=== PATIENT | male | born 1930 | race Caucasian/White ===

== ENCOUNTER 2017-10-06 14:40 | Inpatient (IN) | payer MEDICARE, OTHER ==
[~2017-10-06] VITALS: Ht 167.6 cm; Wt 72.6 kg
[~2017-10-06 14:40] MED LIST: AMIT75TA2 PO; ASPI-1158 PO; ATOR10TA69 PO; BACL-141 PO; CARV3.1242 PO; IPRA3AMP IH; LOSA25TA12 PO; MOME13HF2 INH
[2017-10-06] MEDS ORDERED: ALBUTEROL (0.083%) 2.5MG/3ML NEB HHN STA (15:18)
[2017-10-06] MEDS ORDERED: METHYLPREDNISOLONE SOD SUCC 125 MG/2 ML VIAL IV STA (15:18)
[2017-10-06] MEDS ORDERED: IPRATROPIUM BROMIDE (0.02%) 0.5MG/2.5ML NEB HHN STA (15:18)
[2017-10-06 15:53] LABS: BASOPHILS % 0.4 % (0.0-2.0); EOSINOPHILS % 0.3 % (0.0-5.0); HEMATOCRIT. 51.2 % (42.0-52.0); HEMOGLOBIN. 18.1 g/dL (14.0-18.0); LYMPHOCYTES % 8.2 % (20.0-50.0); MEAN CORPUSCULAR VOLUME 90.7 fL (80.0-94.0); MEAN PLATELET VOLUME 8.8 fl (7.4-10.4); MONOCYTES % 5.5 % (2.0-8.0); NEUTROPHILS % 85.6 % (40.0-76.0); PLATELET 291 x1000/uL (130-400); RED BLOOD CELL COUNT 5.64 mill/uL (4.7-6.1); RED CELL DISTRIBUTION WIDTH 14.2 % (11.6-14.6)
[2017-10-06 15:57] LABS: CHLORIDE 99 mEq/L (98-107)
[2017-10-06 15:58] LABS: PROTHROMBIN TIME 10.1 sec (9.4-11.6)
[2017-10-06] MEDS ORDERED: LEVOFLOXACIN 750MG PREMIX 150 ML IV ONE (17:15)
[2017-10-06] MEDS ORDERED: ENALAPRIL 2.5MG/2ML VIAL 2ML IV ONE (17:15)
[2017-10-06] MEDS ORDERED: FUROSEMIDE 40MG/4ML VIAL IVP ONE (17:15)
[2017-10-06] MEDS ORDERED: METRONIDAZOLE 500 MG PREMIX 100 ML IV ONE (17:15)
[2017-10-06] MEDS ORDERED: IPRATROPIUM/ALBUTEROL 0.5-3(2.5)MG/3ML NEB HHN PRN (18:15)
[2017-10-06 19:57] LABS: CLARITY URINE CLEAR (CLEAR); COLOR URINE YELLOW (YELLOW); KETONES URINE TRACE (NEGATIVE); LEUKOCYTE ESTERASE URINE NEGATIVE (NEGATIVE); NITRITE URINE NEGATIVE (NEGATIVE); OCCULT BLOOD URINE NEGATIVE (NEGATIVE); PROTEIN URINE NEGATIVE (NEGATIVE); SPECIFIC GRAVITY URINE 1.013 (1.005-1.030); UROBILINOGEN URINE 0.2 E.U./dL (0.2-1.0)
[2017-10-06 20:05] LABS: METHADONE URINE SCREEN NEGATIVE (NEGATIVE); OPIATES URINE SCREEN NEGATIVE (NEGATIVE)
[2017-10-06 20:06] LABS: *AMPHETAMINES SCREEN URINE NEGATIVE (NEGATIVE); *BARBITURATES SCREEN URINE NEGATIVE (NEGATIVE); *BENZODIAZEPINES SCREEN URINE NEGATIVE (NEGATIVE); *COCAINE SCREEN URINE NEGATIVE (NEGATIVE); CANNABINOID URINE SCREEN NEGATIVE (NEGATIVE); PHENCYCLIDINE URINE SCREEN NEGATIVE (NEGATIVE)
[2017-10-06] MEDS: INSULIN LISPRO 100 UNITS/ML SUBCUT SCH (20:24)
[2017-10-06] MEDS ORDERED: DEXTROSE 50% WATER 50ML SYRINGE IV PRN (20:30)
[2017-10-06 20:36] VITALS: BP 144/88
[2017-10-06] MEDS: BLOOD SUGAR DIAGNOSTIC STRIP TEST SCH ×2 (21:29→21:48)
[2017-10-06] MEDS: METRONIDAZOLE 500MG TABLET PO SCH (21:48)
[2017-10-06] MEDS: ATORVASTATIN CALCIUM 10MG TABLET PO SCH (21:48)
[2017-10-07] VITALS: BP 142/66
[2017-10-07 04:00] VITALS: BP 119/67
[2017-10-07] MEDS: BLOOD SUGAR DIAGNOSTIC STRIP TEST SCH ×4 (05:38→20:18)
[2017-10-07] MEDS: METRONIDAZOLE 500MG TABLET PO SCH (06:00)
[2017-10-07] MEDS: INSULIN LISPRO 100 UNITS/ML SUBCUT SCH ×3 (06:02→18:10)
[2017-10-07 06:41] LABS: HEMATOCRIT. 51.9 % (42.0-52.0); MEAN CORPUSCULAR HEMOGLOBIN 31.7 pg (28.0-32.0); MEAN CORPUSCULAR VOLUME 91.3 fL (80.0-94.0); MEAN PLATELET VOLUME 8.8 fl (7.4-10.4); PLATELET 257 x1000/uL (130-400); RED BLOOD CELL COUNT 5.68 mill/uL (4.7-6.1); RED CELL DISTRIBUTION WIDTH 14.4 % (11.6-14.6)
[2017-10-07 08:00] VITALS: BP 110/70
[2017-10-07] MEDS ORDERED: ASPIRIN 81MG TABLET PO SCH (09:00)
[2017-10-07] MEDS ORDERED: FUROSEMIDE 40MG/4ML VIAL IVP SCH (09:00)
[2017-10-07] MEDS: CARVEDILOL 3.125 MG TABLET PO SCH ×2 (09:55→17:00)
[2017-10-07] MEDS ORDERED: LEVOFLOXACIN 500MG PREMIX 100 ML IV SCH ×2 (11:00)
[2017-10-07] MEDS ORDERED: LEVOFLOXACIN 500MG TABLET PO SCH (11:00)
[2017-10-07] MEDS ORDERED: LEVOFLOXACIN 250MG PREMIX 50 ML IV SCH (11:00)
[2017-10-07 12:00] VITALS: BP 112/60
[2017-10-07] MEDS: LEVOFLOXACIN 250MG PREMIX 50 ML IV SCH (12:29)
[2017-10-07] MEDS: BUDESONIDE 0.5MG/2ML NEB HHN SCH ×2 (12:51→20:23)
[2017-10-07] MEDS: IPRATROPIUM/ALBUTEROL 0.5-3(2.5)MG/3ML NEB HHN SCH ×2 (12:51→20:23)
[2017-10-07 16:00] VITALS: BP 100/56
[2017-10-07] MEDS ORDERED: SORBITOL 70% SOLN 30ML PO NR ×2 (16:00→20:00)
[2017-10-07] MEDS: METRONIDAZOLE 500 MG PREMIX 100 ML IV SCH ×2 (16:14→21:19)
[2017-10-07 16:45] LABS: PLATELET ESTIMATE NORMAL
[2017-10-07 20:00] VITALS: BP 103/63
[2017-10-07] MEDS: ATORVASTATIN CALCIUM 10MG TABLET PO SCH (21:18)
[2017-10-07] MEDS ORDERED: INSULIN GLARGINE UD 100 UNITS/ML SYR SUBCUT SCH (22:00)
[2017-10-08] VITALS: BP 96/63
[2017-10-08] MEDS: IPRATROPIUM/ALBUTEROL 0.5-3(2.5)MG/3ML NEB HHN SCH ×4 (01:45→20:47)
[2017-10-08 04:00] VITALS: BP 137/77
[2017-10-08] MEDS: BLOOD SUGAR DIAGNOSTIC STRIP TEST SCH ×4 (05:35→21:11)
[2017-10-08] MEDS: METRONIDAZOLE 500 MG PREMIX 100 ML IV SCH ×3 (05:39→21:11)
[2017-10-08] MEDS: INSULIN LISPRO 100 UNITS/ML SUBCUT SCH ×6 (06:28→21:00)
[2017-10-08 06:48] LABS: INR 1.1; PARTIAL THROMBOPLASTIN TIME 26.4 sec (23.4-31.0)
[2017-10-08 07:05] LABS: HEMATOCRIT 53.9 % (42.0-52.0); HEMOGLOBIN 18.7 g/dL (14.0-18.0); MEAN CORPUSCULAR HEMOGLOBIN 31.7 pg (28.0-32.0); MEAN CORPUSCULAR VOLUME 91.3 fL (80.0-94.0); PLATELET 257 x1000/uL (130-400); RED BLOOD CELL COUNT 5.91 mill/uL (4.7-6.1); RED CELL DISTRIBUTION WIDTH 14.3 % (11.6-14.6)
[2017-10-08] MEDS: BUDESONIDE 0.5MG/2ML NEB HHN SCH ×2 (07:35→20:47)
[2017-10-08 08:00] VITALS: BP 154/82
[2017-10-08] MEDS: CARVEDILOL 3.125 MG TABLET PO SCH ×2 (09:00→17:21)
[2017-10-08] MEDS ORDERED: FENTANYL CITRATE/PF 50MCG/ML 2ML VIAL ONE (10:48)
[2017-10-08] MEDS ORDERED: SIMETHICONE 40 MG/0.6 ML 30ML ONE (10:49)
[2017-10-08] MEDS ORDERED: MIDAZOLAM HCL 5 MG/5 ML VIAL ONE ×2 (10:49→11:05)
[2017-10-08] MEDS ORDERED: KCL 20MEQ/100ML PREMIX 100 ML IV SCH (11:00)
[2017-10-08] MEDS: LEVOFLOXACIN 250MG PREMIX 50 ML IV SCH (13:15)
[2017-10-08] MEDS: INSULIN GLARGINE UD 100 UNITS/ML SYR SUBCUT SCH ×2 (13:35→22:00)
[2017-10-08 15:00] VITALS: BP 125/54
[2017-10-08] MEDS ORDERED: POTASSIUM CHLORIDE 20MEQ/PACKET PO NR (18:45)
[2017-10-08 20:00] VITALS: BP 109/63
[2017-10-08] MEDS: ATORVASTATIN CALCIUM 10MG TABLET PO SCH (21:11)
[2017-10-09] VITALS: BP 122/70
[2017-10-09] MEDS: IPRATROPIUM/ALBUTEROL 0.5-3(2.5)MG/3ML NEB HHN SCH ×4 (01:25→20:13)
[2017-10-09 04:00] VITALS: BP 125/71
[2017-10-09] MEDS: METRONIDAZOLE 500 MG PREMIX 100 ML IV SCH ×3 (06:04→21:15)
[2017-10-09] MEDS: INSULIN LISPRO 100 UNITS/ML SUBCUT SCH ×7 (06:05→21:06)
[2017-10-09] MEDS: BLOOD SUGAR DIAGNOSTIC STRIP TEST SCH ×4 (06:06→21:12)
[2017-10-09 06:52] LABS: BASOPHILS % 0.2 % (0.0-2.0); EOSINOPHILS % 0.8 % (0.0-5.0); HEMATOCRIT. 49.7 % (42.0-52.0); HEMOGLOBIN. 17.4 g/dL (14.0-18.0); LYMPHOCYTES % 11.8 % (20.0-50.0); MEAN CORPUSCULAR VOLUME 91.1 fL (80.0-94.0); MEAN PLATELET VOLUME 9.2 fl (7.4-10.4); NEUTROPHILS % 81.2 % (40.0-76.0); PLATELET 211 x1000/uL (130-400); RED BLOOD CELL COUNT 5.46 mill/uL (4.7-6.1); RED CELL DISTRIBUTION WIDTH 14.6 % (11.6-14.6)
[2017-10-09] MEDS: BUDESONIDE 0.5MG/2ML NEB HHN SCH ×2 (07:28→20:13)
[2017-10-09 07:51] VITALS: BP 122/68
[2017-10-09] MEDS: CARVEDILOL 3.125 MG TABLET PO SCH ×2 (08:42→17:34)
[2017-10-09] MEDS: INSULIN GLARGINE UD 100 UNITS/ML SYR SUBCUT SCH ×2 (09:52→21:11)
[2017-10-09] MEDS ORDERED: POTASSIUM CHLORIDE 20MEQ TABLET SR PO NR (10:00)
[2017-10-09] MEDS: LEVOFLOXACIN 250MG PREMIX 50 ML IV SCH (10:53)
[2017-10-09 11:59] VITALS: BP 117/69
[2017-10-09 16:00] VITALS: BP 121/72
[2017-10-09 20:00] VITALS: BP 141/74
[2017-10-09] MEDS: ATORVASTATIN CALCIUM 10MG TABLET PO SCH (21:01)
[2017-10-10] VITALS: BP 135/65
[2017-10-10] MEDS: IPRATROPIUM/ALBUTEROL 0.5-3(2.5)MG/3ML NEB HHN SCH ×3 (01:26→14:20)
[2017-10-10 04:00] VITALS: BP 115/67
[2017-10-10] MEDS: METRONIDAZOLE 500 MG PREMIX 100 ML IV SCH ×2 (06:12→13:11)
[2017-10-10] MEDS: INSULIN LISPRO 100 UNITS/ML SUBCUT SCH ×4 (06:16→13:12)
[2017-10-10] MEDS: BLOOD SUGAR DIAGNOSTIC STRIP TEST SCH ×2 (06:16→12:10)
[2017-10-10] MEDS: BUDESONIDE 0.5MG/2ML NEB HHN SCH (07:30)
[2017-10-10 07:40] LABS: BASOPHILS % 0.2 % (0.0-2.0); EOSINOPHILS % 0.8 % (0.0-5.0); HEMATOCRIT. 48.4 % (42.0-52.0); HEMOGLOBIN. 16.7 g/dL (14.0-18.0); LYMPHOCYTES % 17.7 % (20.0-50.0); MEAN CORPUSCULAR HEMOGLOBIN 31.6 pg (28.0-32.0); MEAN CORPUSCULAR VOLUME 91.4 fL (80.0-94.0); MEAN PLATELET VOLUME 9.2 fl (7.4-10.4); MONOCYTES % 7.9 % (2.0-8.0); NEUTROPHILS % 73.4 % (40.0-76.0); PLATELET 221 x1000/uL (130-400); RED BLOOD CELL COUNT 5.29 mill/uL (4.7-6.1); RED CELL DISTRIBUTION WIDTH 14.2 % (11.6-14.6)
[2017-10-10 08:00] VITALS: BP 115/57
[2017-10-10 09:20] LABS: CHLORIDE 107 mEq/L (98-107)
[2017-10-10] MEDS: CARVEDILOL 3.125 MG TABLET PO SCH (10:07)
[2017-10-10] MEDS: LEVOFLOXACIN 250MG PREMIX 50 ML IV SCH (10:10)
[2017-10-10] MEDS: INSULIN GLARGINE UD 100 UNITS/ML SYR SUBCUT SCH (10:10)
[2017-10-10 12:00] VITALS: BP_SYST 123; BP_SYST 136; BP_SYST 141; BP_DIAS 54; BP_DIAS 63; BP_DIAS 98
[2017-10-10 13:36] VITALS: BP 123/98
== END 2017-10-10 15:40 | disposition home health service (06) | DRG 871 ==
LOC: ER 14:40 → 8WST 17:11 → ENRESERV 20:00 → EDBEDREQ 20:35
PROVIDERS: ADMIT Internal Medicine; ATTEND Internal Medicine
PROC: 0DBL8ZX Excision of Transverse Colon, Via Natural or Artificial Opening Endoscopic, Diagnostic (ICD-10-PCS; 2017-10-08)
PROC: 0DBP8ZX Excision of Rectum, Via Natural or Artificial Opening Endoscopic, Diagnostic (ICD-10-PCS; principal; 2017-10-08 10:30)
DX: A41.9 Sepsis, unspecified organism (principal); I50.43 Acute on chronic combined systolic (congestive) and diastolic (congestive) heart failure; J96.20 Acute and chronic respiratory failure, unspecified whether with hypoxia or hypercapnia; J44.1 Chronic obstructive pulmonary disease with (acute) exacerbation; E87.1 Hypo-osmolality and hyponatremia; K55.9 Vascular disorder of intestine, unspecified; I42.9 Cardiomyopathy, unspecified; K63.3 Ulcer of intestine; N26.1 Atrophy of kidney (terminal); D12.4 Benign neoplasm of descending colon; E87.6 Hypokalemia; H26.9 Unspecified cataract; D12.5 Benign neoplasm of sigmoid colon; E78.5 Hyperlipidemia, unspecified; I25.10 Atherosclerotic heart disease of native coronary artery without angina pectoris; K44.9 Diaphragmatic hernia without obstruction or gangrene; K57.30 Diverticulosis of large intestine without perforation or abscess without bleeding; K62.1 Rectal polyp; I11.0 Hypertensive heart disease with heart failure; E11.65 Type 2 diabetes mellitus with hyperglycemia; D12.3 Benign neoplasm of transverse colon; Z88.2 Allergy status to sulfonamides; Z88.6 Allergy status to analgesic agent; Z79.82 Long term (current) use of aspirin; Z79.899 Other long term (current) drug therapy; I25.2 Old myocardial infarction; Z90.49 Acquired absence of other specified parts of digestive tract; Z86.011 Personal history of benign neoplasm of the brain; Z92.3 Personal history of irradiation
CPT/HCPCS: 36415; 71045; 74176; 80048; 80053; 80305; 81003; 82270; 82962; 83605; 83690; 83735; 83880; 84145; 84484; 85025; 85027; 85610; 85730; 87015; 87040; 87045; 87427; 87449; 87493; 88305; 89055; 93306; 94640; 96365; 96366; 96368; 96375; 99285; J1815; J1940; J1956; J2250; J2930; J3010; J3480; J3490; J7050; J7611; J7620; J7626

== ENCOUNTER 2018-05-16 07:13 | Inpatient (IN) | payer MEDICARE, OTHER ==
[~2018-05-16] VITALS: Ht 172.7 cm; Wt 75.4 kg
[~2018-05-16 07:13] MED LIST changes: -IPRA3AMP IH; +IPRA3AMP31 IH
[2018-05-16] MEDS ORDERED: LORAZEPAM 2MG/ML CPJ IV ONE (07:30)
[2018-05-16 07:41] LABS: BASOPHILS % 0.3 % (0.0-2.0); EOSINOPHILS % 0.2 % (0.0-5.0); HEMATOCRIT. 49.9 % (42.0-52.0); HEMOGLOBIN. 16.9 g/dL (14.0-18.0); LYMPHOCYTES % 16.3 % (20.0-50.0); MEAN CORPUSCULAR HEMOGLOBIN 31.3 pg (28.0-32.0); MEAN CORPUSCULAR VOLUME 92.4 fL (80.0-94.0); MEAN PLATELET VOLUME 8.2 fl (7.4-10.4); NEUTROPHILS % 77.2 % (40.0-76.0); PLATELET 472 x1000/uL (130-400); RED BLOOD CELL COUNT 5.39 mill/uL (4.7-6.1); RED CELL DISTRIBUTION WIDTH 15.1 % (11.6-14.6)
[2018-05-16 07:46] LABS: CHLORIDE 101 mEq/L (98-107)
[2018-05-16 07:47] LABS: PROTHROMBIN TIME 10.2 sec (9.1-11.1)
[2018-05-16] MEDS ORDERED: FENTANYL CITRATE/PF 50MCG/ML 2ML VIAL IV ONE ×2 (09:00→14:30)
[2018-05-16] MEDS ORDERED: MIDAZOLAM HCL 2 MG/2 ML VIAL IV ONE (09:00)
[2018-05-16] MEDS ORDERED: LIDOCAINE HCL 1% 20ML VIAL (Pyxis) INJ ONE (09:12)
[2018-05-16] MEDS ORDERED: PIPERACILLIN/TAZ 3.375G PREMIX 50 ML IV ONE (10:15)
[2018-05-16] MEDS ORDERED: VANCOMYCIN 1 G PREMIX 200 ML IV ONE (10:15)
[2018-05-16] MEDS ORDERED: SODIUM CHLORIDE 0.9% INJ 3ML FLUSH IVF SCH (14:00)
[2018-05-16] MEDS ORDERED: MAGNESIUM/ALUMINUM HYDROXIDE/SIMETHICONE 30ML UDC PO PRN ×2 (14:00→14:15)
[2018-05-16] MEDS ORDERED: NA PHOS,M-B/NA PHOS,DI-BA ENEMA 118ML PR PRN (14:00)
[2018-05-16] MEDS ORDERED: ENOXAPARIN 40MG/0.4ML SYR SUBCUT SCH (14:00)
[2018-05-16] MEDS ORDERED: ACETAMINOPHEN 325MG TABLET PO PRN (14:00)
[2018-05-16] MEDS ORDERED: IPRATROPIUM/ALBUTEROL 0.5-3(2.5)MG/3ML NEB INH PRN (14:00)
[2018-05-16] MEDS ORDERED: DIPHENHYDRAMINE 50MG/ML VIAL IV PRN (14:00)
[2018-05-16] MEDS ORDERED: ACETAMINOPHEN 650MG/20.3ML UDC GT PRN (14:00)
[2018-05-16] MEDS ORDERED: DOCUSATE SODIUM 100MG CAPSULE PO PRN (14:00)
[2018-05-16] MEDS ORDERED: CLONIDINE 0.1MG TABLET PO PRN (14:00)
[2018-05-16] MEDS ORDERED: IPRATROPIUM/ALBUTEROL 0.5-3(2.5)MG/3ML NEB INH SCH (14:00)
[2018-05-16] MEDS ORDERED: ONDANSETRON HCL 4MG/2ML INJ IV PRN (14:00)
[2018-05-16] MEDS ORDERED: ACETAMINOPHEN 650MG SUPP PR PRN (14:00)
[2018-05-16] MEDS ORDERED: GUAIFENESIN 200MG/10ML SUGAR FREE UDC PO PRN (14:00)
[2018-05-16] MEDS ORDERED: HYDRALAZINE HCL 25MG TABLET PO PRN (14:15)
[2018-05-16] MEDS ORDERED: PIPERACILLIN/TAZ 2.25G PREMIX 50 ML IV SCH (14:15)
[2018-05-16] MEDS ORDERED: GUAIFENESIN-DM 200MG-20MG/10ML UDC PO PRN (14:15)
[2018-05-16] MEDS ORDERED: MAGNESIUM HYDROXIDE 400MG/5ML 30ML UDC PO PRN (14:15)
[2018-05-16] MEDS ORDERED: DEXTROSE 50% WATER 50ML SYRINGE IV PRN (14:15)
[2018-05-16] MEDS: BLOOD SUGAR DIAGNOSTIC STRIP TEST SCH (18:45)
[2018-05-16] MEDS: INSULIN LISPRO 100 UNITS/ML SUBCUT SCH (19:55)
[2018-05-16] MEDS: HYDROCODONE/ACETAMINOPHEN 5/325MG TABLET PO PRN (20:50)
[2018-05-17] MEDS: HYDROCODONE/ACETAMINOPHEN 5/325MG TABLET PO PRN ×3 (04:00→12:13)
[2018-05-17] MEDS ORDERED: LEVOFLOXACIN 500MG PREMIX 100 ML IV SCH (05:00)
[2018-05-17 06:25] LABS: BASOPHILS % 0.8 % (0.0-2.0); EOSINOPHILS % 0.4 % (0.0-5.0); HEMATOCRIT. 45.7 % (42.0-52.0); HEMOGLOBIN. 15.8 g/dL (14.0-18.0); LYMPHOCYTES % 17.4 % (20.0-50.0); MEAN CORPUSCULAR HEMOGLOBIN 31.5 pg (28.0-32.0); MEAN CORPUSCULAR VOLUME 91.2 fL (80.0-94.0); MEAN PLATELET VOLUME 8.1 fl (7.4-10.4); MONOCYTES % 7.1 % (2.0-8.0); NEUTROPHILS % 74.3 % (40.0-76.0); PLATELET 280 x1000/uL (130-400); RED BLOOD CELL COUNT 5.01 mill/uL (4.7-6.1); RED CELL DISTRIBUTION WIDTH 15.4 % (11.6-14.6)
[2018-05-17 06:38] LABS: CHLORIDE 102 mEq/L (98-107)
[2018-05-17 06:45] LABS: LDL CHOLESTEROL 55 mg/dL (5-100)
[2018-05-17 06:46] LABS: HDL CHOLESTEROL 75 mg/dL (40-59)
[2018-05-17] MEDS: PIPERACILLIN/TAZ 2.25G PREMIX 50 ML IV SCH ×3 (07:01→20:55)
[2018-05-17] MEDS: BLOOD SUGAR DIAGNOSTIC STRIP TEST SCH ×4 (10:06→21:06)
[2018-05-17] MEDS: INSULIN LISPRO 100 UNITS/ML SUBCUT SCH ×4 (10:12→21:06)
[2018-05-17 11:03] LABS: BG CARBOXYHEMOGLOBIN 0.3 % (0.5-1.5); BG DEOXYHEMOGLOBIN 6.7 % (0.0-5.0); BG FRACTION INSPIRED OXYGEN 28; BG HCO3 ACT 22.9 mmol/L (22.0-26.0); BG METHEMOGLOBIN 0.4 % (0.0-1.5); BG OXYGEN SATURATION 93.3 % (92.0-98.5); BG OXYHEMOGLOBIN 92.6 % (94.0-97.0); BG PCO2 32.9 mmHg (35.0-45.0); BG PH 7.461 (7.350-7.450); BG PO2 66.1 mmHg (75.0-100.0); BG SAMPLE SITE RIGHT BRACHIAL; BG TOTAL HEMOGLOBIN 16.4 g/dL (12.0-18.0); BG VENT MODE NASAL CANNULA
[2018-05-17 14:43] VITALS: BP 101/80
[2018-05-17] MEDS ORDERED: ENOXAPARIN 40MG/0.4ML SYR SUBCUT SCH (15:00)
[2018-05-17] MEDS ORDERED: PRED10TA PO (15:19)
[2018-05-17] MEDS ORDERED: METF-414 PO (15:19)
[2018-05-17] MEDS ORDERED: NAPR-677 PO (15:19)
[2018-05-17] MEDS ORDERED: FINA5TAB11 PO (15:19)
[2018-05-17] MEDS ORDERED: CALC-1098 PO (15:19)
[2018-05-17 16:00] VITALS: BP 174/83
[2018-05-17] MEDS ORDERED: SODIUM CHLORIDE 10% FOR INH 15ML VIAL NEB INH NR (17:00)
[2018-05-17] MEDS ORDERED: HYDROCODONE/ACETAMINOPHEN 5/325MG TABLET PO PRN (17:30)
[2018-05-17 18:00] VITALS: BP 159/97
[2018-05-17 20:00] VITALS: BP 151/81
[2018-05-17] MEDS: ENOXAPARIN 40MG/0.4ML SYR SUBCUT SCH (20:55)
[2018-05-17] MEDS: FAMOTIDINE 20MG TABLET PO SCH (20:56)
[2018-05-17] MEDS: SODIUM CHLORIDE 0.9% INJ 3ML FLUSH IVF SCH (21:06)
[2018-05-17 22:00] VITALS: BP 147/76
[2018-05-18] VITALS (12 sets, daily range): BP systolic 109–145; BP diastolic 54–99
[2018-05-18 00:59] LABS: *AMPHETAMINES SCREEN URINE NEGATIVE (NEGATIVE); *BARBITURATES SCREEN URINE NEGATIVE (NEGATIVE); *BENZODIAZEPINES SCREEN URINE PRESUMTIVE POSITIVE (NEGATIVE); *COCAINE SCREEN URINE NEGATIVE (NEGATIVE); METHADONE URINE SCREEN NEGATIVE (NEGATIVE); OPIATES URINE SCREEN PRESUMTIVE POSITIVE (NEGATIVE); PHENCYCLIDINE URINE SCREEN NEGATIVE (NEGATIVE)
[2018-05-18 01:00] LABS: CANNABINOID URINE SCREEN NEGATIVE (NEGATIVE)
[2018-05-18] MEDS: PIPERACILLIN/TAZ 2.25G PREMIX 50 ML IV SCH ×4 (02:57→21:30)
[2018-05-18] MEDS: LEVOFLOXACIN 250MG PREMIX 50 ML IV SCH (03:57)
[2018-05-18] MEDS: HYDROCODONE/ACETAMINOPHEN 10/325MG TABLET PO PRN ×2 (04:26→21:53)
[2018-05-18 04:30] LABS: CLARITY URINE CLEAR (CLEAR); COLOR URINE YELLOW (YELLOW); KETONES URINE TRACE (NEGATIVE); LEUKOCYTE ESTERASE URINE NEGATIVE (NEGATIVE); NITRITE URINE NEGATIVE (NEGATIVE); OCCULT BLOOD URINE NEGATIVE (NEGATIVE); PH URINE 5.5 (4.5-8.0); PROTEIN URINE NEGATIVE (NEGATIVE); SPECIFIC GRAVITY URINE 1.012 (1.005-1.030); UROBILINOGEN URINE 0.2 E.U./dL (0.2-1.0)
[2018-05-18 06:43] LABS: BASOPHILS % 0.3 % (0.0-2.0); EOSINOPHILS % 0.4 % (0.0-5.0); HEMATOCRIT. 50.4 % (42.0-52.0); HEMOGLOBIN. 17.5 g/dL (14.0-18.0); MEAN CORPUSCULAR VOLUME 92.2 fL (80.0-94.0); MEAN PLATELET VOLUME 8.5 fl (7.4-10.4); NEUTROPHILS % 79.3 % (40.0-76.0); PLATELET 308 x1000/uL (130-400); RED BLOOD CELL COUNT 5.47 mill/uL (4.7-6.1); RED CELL DISTRIBUTION WIDTH 15.1 % (11.6-14.6)
[2018-05-18] MEDS: BLOOD SUGAR DIAGNOSTIC STRIP TEST SCH ×4 (06:58→20:22)
[2018-05-18] MEDS: SODIUM CHLORIDE 0.9% INJ 3ML FLUSH IVF SCH ×3 (06:58→21:31)
[2018-05-18] MEDS: IPRATROPIUM/ALBUTEROL 0.5-3(2.5)MG/3ML NEB INH SCH ×2 (08:31→14:19)
[2018-05-18] MEDS: INSULIN LISPRO 100 UNITS/ML SUBCUT SCH ×4 (08:41→21:46)
[2018-05-18 09:43] LABS: CHLORIDE 102 mEq/L (98-107)
[2018-05-18] MEDS ORDERED: LIDOCAINE HCL 1% 20ML VIAL (Pyxis) INJ INFIL SCH (12:00)
[2018-05-18] MEDS ORDERED: LEVO500T2 MT (14:57)
[2018-05-18 17:47] LABS: BG BASE EXCESS -0.4 mmol/L (-2.0-2.0); BG CARBOXYHEMOGLOBIN 0.9 % (0.5-1.5); BG DEOXYHEMOGLOBIN 4.7 % (0.0-5.0); BG HCO3 ACT 21.7 mmol/L (22.0-26.0); BG METHEMOGLOBIN 0.4 % (0.0-1.5); BG OXYGEN SATURATION 95.2 % (92.0-98.5); BG PCO2 29.9 mmHg (35.0-45.0); BG PH 7.478 (7.350-7.450); BG PO2 70.7 mmHg (75.0-100.0); BG SAMPLE SITE RIGHT RADIAL; BG VENT MODE NASAL CANNULA
[2018-05-18] MEDS ORDERED: IPRATROPIUM/ALBUTEROL 0.5-3(2.5)MG/3ML NEB HHN PRN (20:45)
[2018-05-18] MEDS: IPRATROPIUM/ALBUTEROL 0.5-3(2.5)MG/3ML NEB HHN SCH (21:07)
[2018-05-18] MEDS: FAMOTIDINE 20MG TABLET PO SCH (21:30)
[2018-05-18] MEDS: ENOXAPARIN 40MG/0.4ML SYR SUBCUT SCH (21:33)
[2018-05-19] VITALS (9 sets, daily range): BP systolic 95–142; BP diastolic 50–81
[2018-05-19] MEDS: IPRATROPIUM/ALBUTEROL 0.5-3(2.5)MG/3ML NEB HHN SCH ×3 (02:34→14:06)
[2018-05-19] MEDS: PIPERACILLIN/TAZ 2.25G PREMIX 50 ML IV SCH ×3 (02:43→14:38)
[2018-05-19] MEDS: LEVOFLOXACIN 250MG PREMIX 50 ML IV SCH (03:03)
[2018-05-19] MEDS: SODIUM CHLORIDE 0.9% INJ 3ML FLUSH IVF SCH ×2 (05:47→14:39)
[2018-05-19] MEDS: BLOOD SUGAR DIAGNOSTIC STRIP TEST SCH ×2 (05:47→11:17)
[2018-05-19] MEDS: INSULIN LISPRO 100 UNITS/ML SUBCUT SCH ×2 (07:43→11:22)
== END 2018-05-19 15:44 | disposition home or self-care (01) | DRG 199 ==
LOC: ER 07:20 → 3WST 10:15 → EDBEDREQ 10:20 → EDBEDREQSVC 10:20 → EDBEDREQTM 10:20 → CANRESERV 05-17 13:25 → ENRESERV 05-17 13:25
PROVIDERS: ADMIT Family Medicine; ATTEND Family Medicine
PROC: 0W9B00Z Drainage of Left Pleural Cavity with Drainage Device, Open Approach (ICD-10-PCS; principal; 2018-05-17)
DX: J93.83 Other pneumothorax (principal); J96.00 Acute respiratory failure, unspecified whether with hypoxia or hypercapnia; Z88.2 Allergy status to sulfonamides; J44.9 Chronic obstructive pulmonary disease, unspecified; I10 Essential (primary) hypertension; E11.9 Type 2 diabetes mellitus without complications; I25.10 Atherosclerotic heart disease of native coronary artery without angina pectoris; Z88.6 Allergy status to analgesic agent; Z87.891 Personal history of nicotine dependence; Z79.82 Long term (current) use of aspirin; Z79.899 Other long term (current) drug therapy
CPT/HCPCS: 36415; 36600; 71045; 80048; 80061; 80305; 82375; 82805; 82962; 83880; 84484; 93005; 94640; 96365; 96366; 96375; 99291; C1893; J1650; J1815; J1956; J2060; J2250; J2543; J3010; J3370; J3490; J7050; J7131; J7620